=== PATIENT | male | born 1995 | race Two or more races ===

== ENCOUNTER 2017-01-19 14:07 | Emergency (ER) | payer MEDICAID ==
[~2017-01-19] VITALS: Ht 182.9 cm; Wt 114.8 kg
[2017-01-19 14:34] LABS: Basophils # (auto) 0 uL; Basophils % (auto) 0.4 % (0.0-2.0); CONDITION Y; Eosinophils # (auto) 0 uL; Eosinophils % (auto) 0.2 % (0.0-7.0); Hematocrit 49.6 % (41.0-53.0); Hemoglobin 16.9 g/dL (13.5-17.5); Lymphocytes # (auto) 1.2 uL; Lymphocytes % (auto) 10.7 % (10.0-50.0); Mean Corpuscular Hemoglobin 29.4 pg (28.0-32.0); Mean Corpuscular Hgb Conc. 34.1 g/dL (32.0-36.0); Mean Platelet Volume 7.5 fL (7.4-10.4); Monocytes # (auto) 0.9 uL; Monocytes % (auto) 7.5 % (0.0-12.0); Neutrophils # (auto) 9.2 uL; Neutrophils % (auto) 81.2 % (37.0-80.0); Platelet Count (auto) 453 10^3/uL (140-450); Red Cell Distribution Width 13.8 % (11.6-16.0); White Blood Cell 11.4 10^3/uL (4.4-10.8)
[2017-01-19 14:45] LABS: Urine Bilirubin Negative (Negative); Urine Blood Negative /uL (Negative); Urine Color Yellow (Yellow); Urine Glucose Normal (Normal); Urine Ketone Negative (Negative); Urine Mucus FEW (None Seen); Urine Nitrite Negative (Negative); Urine RBC 5 /hpf (0 - 3); Urine Urobilinogen Normal (Negative); Urine pH 8.5 (5.0-8.0)
[2017-01-19 15:08] LABS: Albumin 3.7 g/dL (3.4-5.0); BUN/Creatinine Ratio 13.6; Bilirubin, Total 0.3 mg/dL (0.2-1.0); Calcium 8.8 mg/dL (8.5-10.1); Potassium 3.9 mmol/L (3.5-5.1); Total Protein 7.3 g/dL (6.4-8.2)
[2017-01-19 20:26] VITALS: BP 131/87
[2017-01-19] MEDS ORDERED: DONNATAL 5ml ORAL Elix (BELLADONNA ALK-PHENOBARB) PO ONE (22:15)
[2017-01-19] MEDS ORDERED: LIDOCAINE VISCOUS 2% 15ML UD PO ONE (22:15)
[2017-01-19] MEDS ORDERED: ALUM & MAG HYDROX-SIMETH LIQ(MAALOX) 30 ML PO ONE (22:15)
[2017-01-19] MEDS ORDERED: DONNATAL 5ml ORAL Elix (BELLADONNA ALK-PHENOBARB) ONE (22:33)
[2017-01-19] MEDS ORDERED: LIDOCAINE VISCOUS 2% 15ML UD ONE (22:33)
[2017-01-19] MEDS ORDERED: ALUM & MAG HYDROX-SIMETH LIQ(MAALOX) 30 ML ONE (22:34)
== END 2017-01-19 23:37 | disposition home or self-care (01) ==
LOC: ER 14:07
DX: K21.9 Gastro-esophageal reflux disease without esophagitis (principal); R06.02 Shortness of breath; R42 Dizziness and giddiness
CPT/HCPCS: 36415; 71020; 80053; 80307; 81001; 84484; 85025; 93005